=== PATIENT | male | born 1965 | race Caucasian/White ===

== ENCOUNTER 2019-05-19 22:49 | Emergency (ER) | payer BC ==
[2019-05-19] MEDS ORDERED: Morphine 4 MG/ML VIAL (1 ml) 4 MG/ML VIAL IV ONE (23:11)
[2019-05-19] MEDS ORDERED: NS 0.9% 1000 ML** 2,000 ML IV ONE (23:11)
[2019-05-19] MEDS ORDERED: Ondansetron INJ* 2 MG/ML VIAL IV ONE (23:11)
[2019-05-19] MEDS ORDERED: Ketorolac INJ* 30 MG/ML 1 ML VIAL IV PUSH ONE (23:11)
--- NOTE | 2019-05-19 23:16 | ED ---
Abdominal Pain/Male - HPI Summary HPI Summary: Pt is a 54 y/o M presenting to the ED brought in by EMS for abd pain initially onset around 1900. He states he experienced some indigestion all day, but still ate normally throughout the day. For dinner, he had a jalapeno burger, tossed salad, and Serbian fries, around 1700. Around 1899, he began experiencing slight abd pain in the epigastric region, which increased in severity around 1999. He also reports being restless, N/V, and back pain directly behind where the abd pain is. - History of Current Complaint Chief Complaint: EDAbdPain Stated Complaint: ABD AND BACK PAIN PER PT Time Seen by Provider: 05/19/19 23:06 Hx Obtained From: Patient Onset/Duration: Sudden Onset, Lasting Hours, Still Present Timing: Constant, Lasting Hours Severity Initially: Moderate Severity Currently: Severe Pain Intensity: 9 Pain Scale Used: 0-10 Numeric Location: Epigastric Radiates: Yes Radiates to: Back Aggravating Factor(s): Nothing Alleviating Factor(s): Nothing Associated Signs And Symptoms: Positive: Back Pain, Nausea, Vomiting - Allergies/Home Medications Allergies/Adverse Reactions: Allergies Allergy/AdvReac Type Severity Reaction Status Date / Time No Known Allergies Allergy Verified 05/19/19 22:52 PMH/Surg Hx/FS Hx/Imm Hx Previously Healthy: Yes Endocrine/Hematology History: Denies: Hx Diabetes Psychiatric History: Reports: Hx Anxiety Infectious Disease History: No Infectious Disease History: Denies: Traveled Outside the [place] in Last 30 Days - Family History Known Family History: Negative: Cardiac Disease - Social History Lives: With Family Alcohol Use: Occasionally Hx Substance Use: No Substance Use Type: Reports: None Smoking Status (MU): Former Smoker Review of Systems Positive: Abdominal Pain, Vomiting, Nausea Positive: Myalgia - back pain All Other Systems Reviewed And Are Negative: Yes Physical Exam - Summary Physical Exam Summary: Appearance: Well-appearing, Well-nourished, lying in bed comfortably Skin: Warm, dry, no obvious rash Eyes: sclera anicteric, no conjunctival pallor ENT: mucous membranes moist, pharynx appears normal Neck: Supple, nontender Respiratory: Clear to auscultation, no signs of respiratory distress Cardiovascular: Normal S1, S2. No murmurs. Normal distal pulses in tibial and radial bilaterally. Abdomen: Soft, RUQ tenderness, normal active bowel sounds present Musculoskeletal: Normal, Strength/ROM Intact Neurological: A&Ox3, awake and alert, mentation is normal, speech is fluent and appropriate Psychiatric: affect is normal, does not appear anxious or depressed Triage Information Reviewed: Yes Vital Signs On Initial Exam: Initial Vitals Temp Pulse Resp BP Pulse Ox 96.5 F 51 17 177/104 100 05/19/19 22:50 05/19/19 22:50 05/19/19 22:50 05/19/19 22:50 05/19/19 22:50 Vital Signs Reviewed: Yes Diagnostics - Vital Signs Vital Signs Temp Pulse Resp BP Pulse Ox 05/19/19 22:50 96.5 F 51 17 177/104 100 - Laboratory Result Diagrams: 05/20/19 00:02 05/20/19 00:02 Lab Statement: Any lab studies that have been ordered have been reviewed, and results considered in the medical decision making process. - EKG 2254 Cardiac Rate: Bradycardia - 45bpm EKG Rhythm: Sinus Bradycardia ST Segment: Normal Ectopy: None Summary of EKG Findings: EKG at 2254 shows sinus bradycardia at 45bpm with nml axis and nml intervals. No STEMI. Abdominal Pain Male Course/Dx - Course Course Of Treatment: Pt is a 54 y/o M presenting to the ED brought in by EMS for abd pain initially onset around 1900. He also reports being restless, N/V, and back pain directly behind where the abd pain is. EKG at 2254 shows sinus bradycardia at 45bpm with nml axis and nml intervals. No STEMI. In the ED course, the pt was given 10mg Toradol IV, 8mg Zofran IV, 10mg Morphine IV, and 2L fluids. Pt will be signed out to Dr. Etienne at 0700 on 05/20/19 pending US gallbladder. - Diagnoses Provider Diagnoses: Biliary colic, Cholelithiasis Discharge ED - Sign-Out/Discharge Documenting (check all that apply): Sign-Out Patient - pending US gallbladder Signing out patient TO: Heidy Etienne Patient Received Moderate/Deep Sedation with Procedure: No - Discharge Plan Condition: Stable Disposition: HOME Patient Education Materials: Gallstones (ED), Low Fat Diet (ED) Forms: *Work Release Referrals: Rudolph Flores MD [Medical Doctor] - 2 Days Zac England MD [Primary Care Provider] - If Needed Additional Instructions: Return to the emergency department for any new or worsening symptoms. - Billing Disposition and Condition Condition: STABLE Disposition: Home - Attestation Statements Document Initiated by Angieibe: Yes Documenting Scribe: Bertha Moser Provider For Whom Angieibdimitri is Documenting (Include Credential): Neymar Yepez MD. Scribe Attestation: Bertha Low, maritzaed for Neymar Yepez MD. on 05/23/19 at 2113. Scribe Documentation Reviewed: Yes Provider Attestation: The documentation as recorded by the angieibBertha mosley accurately reflects the service I personally performed and the decisions made by Neymar dalton MD. Status of Scribe Document: Viewed
[2019-05-20 00:09] LABS: ABS Monocytes 0.8 10^3/ul (0-0.8); ABS Neutrophils 9.2 10^3/ul (1.5-7.7); Eosinophil % 0.3 %; Hematocrit 41 % (42-52); Hemoglobin 14.2 g/dL (14.0-18.0); Lymphocyte % 9.5 %; Mean Corpuscular HGB Conc 35 g/dL (31-36); Mean Corpuscular Hemoglobin 31 pg (27-31); Mean Corpuscular Volume 89 fL (80-94); Mean Platelet Volume 7.6 fL (7.4-10.4); Nucleated Red Blood Cells % 0.2; Platelet Count 198 10^3/uL (150-450); Red Blood Count 4.64 10^6 /uL (4.18-5.48); Red Cell Distribution Width 13 % (10-15); White Blood Count 11.1 10^3/uL (3.5-10.8)
[2019-05-20 00:26] LABS: Albumin 4.1 g/dL (3.2-5.2); BUN/Creatinine Ratio 13.3 (8-20); EGFR African American 96.1 (>60); EGFR Non-African American 79.4 (>60); Globulin 2.1 g/dL (2-4); Total Bilirubin 0.4 mg/dL (0.2-1.0); Total Protein 6.2 g/dL (6.4-8.9)
[2019-05-20 00:44] LABS: Potassium 4.7 mmol/L (3.5-5.0)
[2019-05-20 00:53] LABS: Urine Appearance Clear; Urine Bilirubin Negative (Negative); Urine Blood Negative (Negative); Urine Color Straw; Urine Glucose 1+(50 mg/dL) (Negative); Urine Ketones Negative (Negative); Urine Nitrite Negative (Negative); Urine Protein Negative (Negative); Urine Specific Gravity 1.011 (1.010-1.030); Urine Urobilinogen Negative (Negative)
--- NOTE | 2019-05-20 07:05 | ED ---
Progress - Progress Note Progress Note: The patient is a sign-out from Dr. Neymar Yepez MD, to Dr. Heidy Etienne MD, at change of shift at 0700 on 05/20/2019, pending US Gallbladder and disposition. US Gallbladder impression reveals cholelithiasis and likely cholecystitis with gallbladder wall thickening. At 0926, the patient is lying comfortably in bed accompanied by girlfriend Yulissa and states he is feeling great with pain rated at 2/10 in severity which he notes has improved from 8-9/10 in severity from last night. Ultrasound results are reported to the patient. Plan for surgical consult is also discussed. Physical Exam Appearance: Comfortable, minimal pain distress, well-nourished Skin: Warm, color reflects adequate perfusion, dry Head: Normal Head/Face inspection, atraumatic Eyes: Conjunctiva clear ENT: Normal inspection Neck: Supple, no nodes, no JVD Respiratory: Lungs clear, normal breath sounds, no respiratory distress Cardio: RRR, No murmur, pulses normal, brisk capillary refill Abdomen: Soft, mild tenderness in the epigastrium and RUQ, no rebound, no guarding, no masses, non-distended Bowel sounds: Present Musculoskeletal: Strength Intact/ROM intact, no calf tenderness, no edema. Psychological: Normal Neuro: Alert, muscle tone normal, no focal deficit He denies any CP, headache, dizziness, or nausea currently but states he had nausea and vomiting last night following eating burgers for dinner. UA is noted to reveal 1+ glucose; he states that he has "overdone it on the cookies" throughout the last few days but denies dx of DM. He states that he has a court appearance tomorrow and declines staying for surgery today, but he still agrees with surgical consultation today to schedule the surgery. He declines any pain medication at this time. Repeat vitals will be taken. At 0938, I discussed the patient's case with Gene, scrub nurse in the OR, and she reports that the case will be reported to a surgeon for consultation in the ED. Dr. Phipps, general surgery, is in the ED at 0953 for surgical consultation with the patient. He is comfortable with discharge of the patient at this time. - Results/Orders Results/Orders: Gallbladder Ultrasound Impression: Echogenic liver consistent with hepatic steatosis. Gallbladder wall thickening, cholelithiasis or pericholecystic fluid suspicious for cholecystitis. Clinical correlation is suggested. ED physician has reviewed this report. Re-Evaluation - Re-Evaluation First Eval Re-Evaluation Time: 09:26 Change: Improved Comment: He pain has improved to only 2/10 in severity. We discussed US and UA results and plan thus far for surgical consult. He declines pain medication at this time. Course/Dx - Course Course Of Treatment: The patient is a sign-out from Dr. Neymar Yepez MD, to Dr. Heidy Etienne MD, at change of shift at 0700 on 05/20/2019, pending US Gallbladder and disposition. He is feeling improvement in his pain and declines additional pain medication at this time. Upon physical exam, the patient exhibits mild tenderness in the epigastrium and RUQ. US Gallbladder impression reveals cholelithiasis and likely cholecystitis with gallbladder wall thickening. UA reveals 1+ glucose. We discussed these results, and he declines admission today but would still like the consult from surgery. Dr. Phipps from general surgery consulted with the patient in the ED and reports that he can be safely discharged at this time. Pt understands and agrees with this plan. - Diagnoses Provider Diagnoses: Biliary colic, Cholelithiasis - Provider Notifications Discussed Care Of Patient With: Gene - scrub nurse in OR Time Discussed With Above Provider: 09:38 Instructed by Provider To: Other - Gene reports that the surgeons are currently in procedures, but she will report the patient case to either Dr. Flores or Dr. Phipps who will come the patient in the ED for consultation. Discharge ED - Sign-Out/Discharge Documenting (check all that apply): Patient Departure - Patient will be discharged home., Receiving Sign-Out Receiving patient FROM: Neymar Yepez - Patient is a sign-out from Dr. Neymar Yepez MD, at change of shift at 0700 on 05/20/2019, pending US Gallbladder and disposition. Patient Received Moderate/Deep Sedation with Procedure: No - Discharge Plan Condition: Stable Disposition: HOME Patient Education Materials: Gallstones (ED), Low Fat Diet (ED) Forms: *Work Release Referrals: Rudolph Flores MD [Medical Doctor] - 2 Days Zac England MD [Primary Care Provider] - If Needed Additional Instructions: Return to the emergency department for any new or worsening symptoms. - Billing Disposition and Condition Condition: STABLE Disposition: Home - Attestation Statements Document Initiated by Zabrina: Yes Documenting Scribe: Pretty Louie Provider For Whom Zabrina is Documenting (Include Credential): Dr. Heidy Etienne MD Scribe Attestation: Pretty Low scribed for Dr. Heidy Etienne MD on 07/04/19 at 0604. Scribe Documentation Reviewed: Yes Provider Attestation: The documentation as recorded by the Pretty cutler accurately reflects the service I personally performed and the decisions made by me, Dr. Heidy Etienne MD Status of Scribe Document: Viewed
[2019-05-20 11:07] VITALS: BP 147/89
--- NOTE | 2019-05-20 11:44 | CONS ---
CONSULTATION REPORT: DATE OF CONSULT: 05/20/19 CHIEF COMPLAINT: Gallstones, abdominal pain. HISTORY OF PRESENT ILLNESS: This is a pleasant 54-year-old gentleman, who presented to the emergency room with abdominal pain in the right upper quadrant , which was severe, 9/10 severity, sharp, some nausea. He has never had pain like this before. Worse with food. Relieved by avoiding food. He had a workup in the emergency room, which revealed gallstones, mildly elevated white blood cell count of 11,000. He now feels well with no abdominal pain and wishes to go home and see me in the office. PAST MEDICAL HISTORY: He denies a history of cardiac, liver, kidney or lung disease. PAST SURGICAL HISTORY: None. MEDICATIONS: None. ALLERGIES: None. FAMILY HISTORY: Denied history of colorectal or cancer. SOCIAL HISTORY: Nonsmoker. Lives here with his . REVIEW OF SYSTEMS: General: Denies weight loss or change of appetite. HEENT: No changes in vision, hearing, swallowing. No sore throat. Cardiac: No chest pain. Pulmonary: No cough. GI: No blood per rectum. : No hematuria. Skin: Denies rash. Neuro: No headache or dizziness. Musculoskeletal: No extremity weakness. Psych: No anxiety or depression PHYSICAL EXAM: General: Pleasant gentleman lying comfortably in bed. Vital Signs: Stable. HEENT: The sclerae are anicteric. Oral mucosa is pink and moist. Neck is supple. No JVD. Heart: Regular. Lungs are clear. Abdomen: Soft, nondistended, nontender. No masses or organomegaly. Extremities: No clubbing, cyanosis, or edema. Neuro Exam: Grossly intact. No focal motor or sensory deficits. Skin: No rashes, petechiae, or jaundice. IMPRESSION AND PLAN : Biliary colic/mild bout of cholecystitis. He will be treated electively for his cholecystitis. We discussed surgery. He would like to come and see me in the office. He understands to call with any recurrent pain or issues. [id number]/[facility] #: [id number] [facility]
== END 2019-05-20 11:05 | disposition home or self-care (01) ==
LOC: ED 22:49
DX: K80.50 Calculus of bile duct without cholangitis or cholecystitis without obstruction (principal); Z87.891 Personal history of nicotine dependence
CPT/HCPCS: 36415; 76705; 80053; 81003; 83690; 84484; 85025; 93005; 96361; 96374; 96375; 99284; J1885; J2270; J2405

== ENCOUNTER 2019-10-06 09:29 | Day surgery (SDC) | payer BC ==
[~2019-10-06 09:29] MED LIST: Buffered Lidocaine 1% SYRIN* 1 ML/SYRINGE INTRADERM ONE; Dexamethasone TAB* 4 MG PO ONE; DiMENhydriNATE IV* 50 MG/ML VIAL IV PUSH PRN; Famotidine IV* 10 MG/ML 2 ML (20 mg) IV ONE; Lactated Ringers 1000 ML Bag* 1,000 ML IV SCH; Naloxone* 0.4 MG/ML 1 ML VIAL IV PRN; Ondansetron ODT TAB* 4 MG PO ONE; PROCHLORPERAZINE INJ 5 MG/ML 2 ML VIAL IV PRN; fentaNYL* 50 MCG/ML 2 ML VIAL (100 MCG VIAL) IV PRN; oxyCODONE TAB* 5 MG TAB PO PRN
[2019-10-06] MEDS ORDERED: Rocuronium* 10 MG/ML VIAL ONE (09:48)
[2019-10-06] MEDS ORDERED: KETAMINE HCL* 50 MG/ML 10 ML VIAL ONE (09:48)
[2019-10-06] MEDS ORDERED: fentaNYL* 50 MCG/ML 2 ML VIAL (100 MCG VIAL) ONE (09:48)
[2019-10-06] MEDS ORDERED: Midazolam* 1 MG/ML 5 ML VIAL (5 MG) ONE (09:49)
[2019-10-06] MEDS ORDERED: Dexamethasone TAB* 4 MG ONE (09:53)
[2019-10-06] MEDS ORDERED: Ondansetron ODT TAB* 4 MG ONE (09:53)
[2019-10-06] MEDS ORDERED: ceFAZolin 2 GM PREMIX in ORs 0 GM/0 ML BAG ONE (09:54)
[2019-10-06] MEDS ORDERED: Famotidine IV* 10 MG/ML 2 ML (20 mg) ONE (09:54)
[2019-10-06] MEDS ORDERED: Buffered Lidocaine 1% SYRIN* 1 ML/SYRINGE INTRADERM ONE (09:54)
[2019-10-06] MEDS ORDERED: Bupivacaine 0.5%* 50 ML MDV VIAL ONE (10:25)
[2019-10-06] MEDS ORDERED: ceFOXitin 2 GM IVPREMIX* 2 GM/50 ML BAG ONE (10:43)
[2019-10-06] MEDS ORDERED: HYDROmorphone INJ1* 1 MG/ML SYRINGE ONE ×2 (11:20→12:35)
[2019-10-06] MEDS ORDERED: Phenylephrine 40 MCG/ML SYRINGE ONE (11:20)
[2019-10-06] MEDS ORDERED: Ketorolac INJ* 30 MG/ML 1 ML VIAL ONE ×2 (11:27→11:28)
[2019-10-06] MEDS ORDERED: Propofol* 10 MG/ML 20 ML BTL ONE (11:27)
[2019-10-06] MEDS ORDERED: EPHEDrine (Pressors)* 50 MG/ML VIAL ONE (11:27)
[2019-10-06] MEDS ORDERED: Lidocaine 2% PF * 5 ML VIAL ONE (11:27)
[2019-10-06] MEDS ORDERED: Acetaminophen IV 1GM/100ML * 100 ML ONE (11:27)
[2019-10-06] MEDS ORDERED: hydrALAZINE IV* 20 MG/ML VIAL ONE (12:00)
[2019-10-06] MEDS: HYDROmorphone INJ1* 1 MG/ML SYRINGE IV PRN ×4 (12:36→13:15)
[2019-10-06] MEDS ORDERED: oxyCODONE TAB* 5 MG TAB ONE (12:55)
[2019-10-06 14:27] VITALS: BP 151/96
--- NOTE | 2019-10-07 00:49 | OP ---
DATE OF OPERATION: 10/06/19 [facility] DATE OF : 63 SURGEON: Daniel Phipps MD MEDICAL BILLING AND CODING INSTRUCTOR: TAYLOR Mercado PRE-OP DIAGNOSIS: Cholecystitis. POST-OP DIAGNOSIS: Cholecystitis. OPERATIVE PROCEDURE: Robotic cholecystectomy. INDICATIONS FOR PROCEDURE: Cholecystitis. Risks including but not limited to bleeding, infection, injury to intra-abdominal contents including the bowel, the bile duct, no relief of symptoms, injury to the liver or other intraabdominal contents, cystic duct leak, others were explained to the patient , who seemed to understand and agreed to the procedure and all questions were answered. DESCRIPTION OF PROCEDURE: The patient was taken to the operating room and placed supine. Preoperative antibiotics were given. After the successful induction of general endotracheal anesthesia, the abdomen was prepped and draped in sterile fashion. A left upper quadrant 5 mm trocar was placed under direct visualization of the camera using a bladeless Optiview trocar. Pneumoperitoneum was achieved to 12 mmHg. A camera was placed in the abdomen and the abdomen was scanned. There was no obvious injury from trocar placement. 8-mm robotic trocars were placed in the infraumbilical and right lower quadrant positions under direct visualization of the camera. The bladeless Optiview trocar was replaced with an 8-mm robotic trocar. The patient was placed in the reverse Trendelenburg position, tilted slightly towards the left. The robot was brought in and docked. The fundus of the gallbladder was grasped and retracted up and over the liver. Some adhesions were gently taken down along an avascular plane. The cystic duct and artery were identified, isolated, clipped, and divided. The gallbladder was removed from the hepatic bed using Bovie cautery with a scissors. It was placed into an Endobag and removed from the umbilical port site. The right upper quadrant was inspected. EBL minimal. Hemostasis was intact. There were no obvious injuries noted in the abdomen. Pneumo-peritoneum was released from the abdomen. The midline periumbilical fascia was closed with a single 0 Vicryl stitch. The skin at each site was closed with 3-0 Monocryl. Glue was applied to the skin. He tolerated the procedure well. He was extubated and taken to Recovery in stable condition. [id number]/[facility] #: [id number] [facility]
== END 2019-10-06 14:38 | disposition home or self-care (01) ==
LOC: OR 09:29
PROVIDERS: ATTEND Surgery
DX: K80.10 Calculus of gallbladder with chronic cholecystitis without obstruction (principal); R03.0 Elevated blood-pressure reading, without diagnosis of hypertension
CPT/HCPCS: 47562; S2900; 88304; A9270-GY; J0360; J0690; J0694; J1170; J1885; J2250; J2704; J3010; J3490; J8540